=== PATIENT | male | born 1970 | race Caucasian/White ===

== ENCOUNTER 2019-11-15 12:45 | Observation (INO) | payer OTHER ==
[~2019-11-15] VITALS: Ht 172.7 cm; Wt 82.6 kg
[2019-11-15 13:49] LABS: HEMATOCRIT 43.9 % (39.0-50.0); HEMOGLOBIN 14.6 g/dl (14.0-18.0); MEAN CELL VOLUME 91.1 fL CALC (80.0-100.0); MEAN CORPUSCULAR HGB 30.3 pG CALC (26.0-32.0); MEAN CORPUSCULAR HGB CONC 33.3 g/L CALC (32.0-36.0); NEUT# 3.46 thou/uL (1.82-7.42); RED BLOOD COUNT 4.82 mill/uL (4.70-6.10); RED CELL DISTRI WIDTH 12.7 % (11.5-15.5)
[2019-11-15] MEDS ORDERED: SYNTHROID50 MCG PO (14:06)
[2019-11-15 14:25] LABS: ACT PARTIAL THROMBO TIME 26.5 SECONDS (20.0-32.5); PROTHROMBIN TIME 10.4 SECONDS (9.0-12.5)
[2019-11-15 14:54] LABS: BARBITURATES NEGATIVE (NEGATIVE); COCAINE NEGATIVE (NEGATIVE); METHADONE NEGATIVE (NEGATIVE); OXCYCODONE NEGATIVE (NEGATIVE); TETRAHYDROCANNABIONOL NEGATIVE (NEGATIVE); TRICYLIC ANTIDEPRESSANTS NEGATIVE (NEGATIVE); URINE BILIRUBIN - DIPSTICK NEGATIVE (NEGATIVE); URINE BLOOD DIPSTICK NEGATIVE (NEGATIVE); URINE COLOR YELLOW; URINE GLUCOSE - DIPSTICK NEGATIVE (NEGATIVE); URINE KETONE NEGATIVE (NEGATIVE); URINE LEUK ESTERASE NEGATIVE (NEGATIVE); URINE NITRITE - DIPSTICK NEGATIVE (Negative); URINE PROTEIN - DIPSTICK NEGATIVE (NEG-TRACE); URINE SPECIFIC GRAVITY 1.015; URINE UROBILINOGEN - DIPSTICK 0.2 E.U./dL (0.2)
[2019-11-15 15:00] LABS: ALBUMIN 4.5 g/dL (3.2-5.0); ALKALINE PHOSPHATASE 83 u/l (38-126); ANION GAP 17 (6-22 (CALC)); BILIRUBIN, TOTAL 0.6 mg/dL (0.0-1.4); BUN 6 mg/dL (9-20); BUN/CREATININE RATIO 7 (12-20 (CALC)); CARBON DIOXIDE 22 mmol/l (22-30); CHLORIDE 105 mmol/l (95-108); CREATININE 0.9 mg/dL (0.7-1.3); GFR > 60 ML/MIN (>=60 (CALC)); GFR FOR AFR.AMER. > 60 ML/MIN (>=60 (CALC)); LIPASE 33 u/l (23-300); POTASSIUM 4.4 mmol/l (3.5-5.1); SGOT/AST 22 u/l (17-59); SODIUM 139 mmol/l (137-146); TOTAL PROTEIN 8.1 g/dL (6.3-8.2)
[2019-11-15 15:12] LABS: MYOGLOBIN 37 ng/mL (0 - 121)
[2019-11-15 19:28] VITALS: BP 146/81
[2019-11-15 23:45] VITALS: BP 99/62
[2019-11-16 03:40] VITALS: BP 101/63
[2019-11-16 06:49] LABS: CHOLESTEROL HDL RATIO 4.5 (<4.4 (CALC)); MAGNESIUM 2.2 mg/dL (1.6-2.3)
[2019-11-16 07:21] VITALS: BP 117/72
[2019-11-16 10:55] VITALS: BP 137/90
== END 2019-11-16 14:28 | DRG 313 ==
LOC: ED 12:45 → ED-I 15:02 → ED 16:33 → MS2 16:33
PROVIDERS: ADMIT Internal Medicine; ATTEND Internal Medicine
DX: R07.89 Other chest pain (principal); I10 Essential (primary) hypertension; E03.9 Hypothyroidism, unspecified
CPT/HCPCS: G0378

== ENCOUNTER 2020-12-24 21:57 | Emergency (ER) | payer SELFPAY ==
[~2020-12-24] VITALS: Ht 172.7 cm; Wt 77.0 kg
[~2020-12-24 21:57] MED LIST: SYNTHROID50 MCG PO
[2020-12-24 22:48] VITALS: BP 132/71
[2020-12-24] MEDS ORDERED: DOXYCYCL HYC100 MG PO (23:24)
[2020-12-24] MEDS ORDERED: VOLTAREN75 MG PO (23:24)
== END 2020-12-24 23:48 | disposition home or self-care (01) | DRG 605 ==
LOC: ED 21:57
DX: S91.331A Puncture wound without foreign body, right foot, initial encounter (principal); L03.115 Cellulitis of right lower limb; W26.9XXA Contact with unspecified sharp object(s), initial encounter; Y93.89 Activity, other specified; Y92.009 Unspecified place in unspecified non-institutional (private) residence as the place of occurrence of the external cause

== ENCOUNTER 2021-04-25 12:33 | Observation (INO) | payer OTHER ==
[~2021-04-25] VITALS: Ht 172.7 cm; Wt 73.2 kg
[~2021-04-25 12:33] MED LIST changes: +DOXYCYCL HYC100 MG PO; +VOLTAREN75 MG PO
--- NOTE | 2021-04-25 12:33 | NUR ---
TO ROOM VIA EMS, SEIZURE PRECAUTIONS IN PLACE.
[2021-04-25 13:06] LABS: HEMATOCRIT 44.8 % (39.0-50.0); HEMOGLOBIN 15.2 g/dl (14.0-18.0); IMMATURE GRANULOCYTES 0.2 % (0.0-5.0); MEAN CELL VOLUME 89.2 fL CALC (80.0-100.0); MEAN CORPUSCULAR HGB 30.3 pG CALC (26.0-32.0); MEAN CORPUSCULAR HGB CONC 33.9 g/dL CAL (32.0-36.0); NEUT# 4.46 thou/uL (1.82-7.42); RED BLOOD COUNT 5.02 mill/uL (4.70-6.10); RED CELL DISTRI WIDTH 12.3 % (11.5-15.5)
[2021-04-25 13:12] LABS: URINE BILIRUBIN - DIPSTICK NEGATIVE (NEGATIVE); URINE BLOOD DIPSTICK NEGATIVE (NEGATIVE); URINE COLOR YELLOW; URINE GLUCOSE - DIPSTICK NEGATIVE (NEGATIVE); URINE KETONE NEGATIVE (NEGATIVE); URINE LEUK ESTERASE NEGATIVE (NEGATIVE); URINE NITRITE - DIPSTICK NEGATIVE (Negative); URINE PH 7.5 (4.5-8.0); URINE PROTEIN - DIPSTICK NEGATIVE (NEG-TRACE); URINE SPECIFIC GRAVITY 1.015; URINE UROBILINOGEN - DIPSTICK 0.2 E.U./dL (0.2)
[2021-04-25 13:25] LABS: ACT PARTIAL THROMBO TIME 18.7 SECONDS (20.0-32.5); PROTHROMBIN TIME 10.3 SECONDS (9.0-12.5)
[2021-04-25 13:27] LABS: ALBUMIN 4.5 g/dL (3.2-5.0); ALKALINE PHOSPHATASE 87 u/l (38-126); AMYLASE 68 u/l (30-110); ANION GAP 16 (6-22 (CALC)); BILIRUBIN, TOTAL 0.4 mg/dL (0.0-1.4); BUN 7 mg/dL (9-20); BUN/CREATININE RATIO 8 (12-20 (CALC)); CARBON DIOXIDE 26 mmol/l (22-30); CHLORIDE 101 mmol/l (95-108); CPK 45 u/l (52-200); CREATININE 0.9 mg/dL (0.7-1.3); ETHYL ALCOHOL 0 mg/dl (0-30); GFR > 60 ML/MIN (>=60 (CALC)); GFR FOR AFR.AMER. > 60 ML/MIN (>=60 (CALC)); LIPASE 52 u/l (23-300); POTASSIUM 3.9 mmol/l (3.5-5.1); SGOT/AST 22 u/l (17-59); SODIUM 139 mmol/l (137-146); TOTAL PROTEIN 7.8 g/dL (6.3-8.2)
--- NOTE | 2021-04-25 13:30 | NUR ---
PATIENT RESTING, AWAITING RSULTS AND CT SCAN RESULTS. NO DISTRESS. VSS.
--- NOTE | 2021-04-25 15:38 | NUR ---
TELE NEURO IN PROGRESS
--- NOTE | 2021-04-25 16:00 | NUR ---
PATIENT RESTING, SPEECH CLEAR, NO DISTRESS. CONTINUING TO MONITOR.
--- NOTE | 2021-04-25 17:00 | NUR ---
PATIENT RESTING, NO DISTRESS. AWAITING BED ASSIGNMENT. PLAN REVIEWED.
--- NOTE | 2021-04-25 18:40 | NUR ---
DINNER TRAY PROVIDED.
--- NOTE | 2021-04-25 18:50 | NUR ---
REPORT GIVEN TO ICU NURSE TATE.
[2021-04-25 19:00] VITALS: BP 124/96
--- NOTE | 2021-04-25 19:00 | NUR ---
PATIENT LAYS IN RAE'S. IS ALERT AND ORIENTED X4. ANSWERS QUESTIONS APPROPRIATELY AND SPEECH CLEAR. FOLLOWS DIRECTIONS. NIH PERFORMED AND SCORE IS 1 DUE TO PATIENT DRIFTS RIGHT LEG, PATIENT REPORTS HIS MUSCLES ARE SORE FROM HIS SEIZURE AND THEREFORE IS HAVING TROUBLE LIFTING LEGS UP. ADMISSION ASSESSMENT COMPLETED. PATIENT REPORTS HEADACHE, THROBBING, RATES 7\10. LEFT WRIST HANDCUFFED AND LEFT LEG CUFFED TO BED. GUARD AT BEDSIDE. SR ON TELEMETRY, VS WNL. ON RA, NO SOB NOTED. MEDICATION RCONCILIATION COMPLETED. REPORTS HE HAS NOT TAKEN HIS SEIZURE MEDICATION SINCE ABOUT 1 YEAR AGO. REPORTS HE WAS GIVEN 2 BLOOD PRESSURE MEDICATIONS LAST NIGHT AT THE [facility] BECAUSE HIS BLOOD PRESSURE WAS HIGH. NKA. CALL LIGHT WITHIN REACH.
[2021-04-25] MEDS ORDERED: LEVOTHYROXIN50 MC1 PO (19:21)
[2021-04-25] MEDS ORDERED: CLONIDINE0.1 MG PO (19:22)
[2021-04-25 20:00] VITALS: BP 127/81
[2021-04-25 21:00] VITALS: BP 144/82
--- NOTE | 2021-04-25 21:14 | NUR ---
TYLENOL GIVEN BY FRANCISCO ISAAC FOR C/O HEADACHE, RATES 7 OUT OF 10. NO OTHER NEEDS OR COMPLAINTS, VS WNL. GUARD AT BEDSIDE.
[2021-04-25 22:00] VITALS: BP 145/80
[2021-04-25 23:00] VITALS: BP 96/63
[2021-04-26] VITALS (15 sets, daily range): BP systolic 85–164; BP diastolic 52–91
--- NOTE | 2021-04-26 01:00 | NUR ---
PATIENT AWAKENS EASILY WHEN SPOKEN TO. NO ACUTE DISTRESS SHOWN. FOLLOWS ALL DIRECTIONS. NO COMPLAINTS OF PAIN. ALL VS WNL. SR ON TELEMETRY. GUARD AT BEDASIDE. NO NEEDS AT THIS TIME.
[2021-04-26 04:19] LABS: HEMATOCRIT 48.9 % (39.0-50.0); HEMOGLOBIN 15.9 g/dl (14.0-18.0); IMMATURE GRANULOCYTES 0.1 % (0.0-5.0); MEAN CORPUSCULAR HGB 30.2 pG CALC (26.0-32.0); MEAN CORPUSCULAR HGB CONC 32.5 g/dL CAL (32.0-36.0); NEUT# 3.6 thou/uL (1.82-7.42); RED BLOOD COUNT 5.26 mill/uL (4.70-6.10); RED CELL DISTRI WIDTH 12.6 % (11.5-15.5)
[2021-04-26 04:39] LABS: ALBUMIN 4.1 g/dL (3.2-5.0); ALKALINE PHOSPHATASE 71 u/l (38-126); ANION GAP 15 (6-22 (CALC)); BILIRUBIN, TOTAL 0.3 mg/dL (0.0-1.4); BUN 13 mg/dL (9-20); BUN/CREATININE RATIO 17 (12-20 (CALC)); CARBON DIOXIDE 22 mmol/l (22-30); CHLORIDE 103 mmol/l (95-108); CREATININE 0.8 mg/dL (0.7-1.3); GFR > 60 ML/MIN (>=60 (CALC)); GFR FOR AFR.AMER. > 60 ML/MIN (>=60 (CALC)); POTASSIUM 3.9 mmol/l (3.5-5.1); SGOT/AST 16 u/l (17-59); SODIUM 136 mmol/l (137-146); TOTAL PROTEIN 7.1 g/dL (6.3-8.2)
--- NOTE | 2021-04-26 07:09 | NUR ---
RECIEVED PATIENT FROM NIGHT NURSE.
--- NOTE | 2021-04-26 07:29 | NUR ---
PATIENT ASSESSED. A/O X3. ABLE TO ANSWER QUESTIONS AND FOLLOW COMMANDS CORRECTLY. NIH SCORE 0. PERRAL. 3MM BILAT EYES. VITALS ARE STABLE. SR ON MONITOR . NORMAL HEART SOUNDS. CLEAR LUNGS THROUGHOUT. ACTIVE BOWEL SOUNDS. NO PRESENT EDEMA. STRONG PULSES. STATED HE HAS NO A PAIN AT THIS TIME BUT "FEELS SORE FROM YESTERDAY". PRODUCT REPRESENTATIVE AT BEDSIDE. SAFETY MEASURES IN PLACE. CALL LIGHT IN REACH. WILL CONTINUE TO MONITOR IN THE ER.
--- NOTE | 2021-04-26 08:00 | NUR ---
PATIENT SITTING UP IN BED EATING BREAKFAST.
--- NOTE | 2021-04-26 09:20 | NUR ---
PATIENT WAS TAKEN DOWN TO MRI.
[2021-04-26] MEDS ORDERED: LISINOPRIL10 MG PO (09:55)
--- NOTE | 2021-04-26 10:23 | NUR ---
PATIENT RETURNED TO ER AFTER MRI.
--- NOTE | 2021-04-26 10:24 | NUR ---
6484- call received from MRI staff in regards to pt activitly having a seizure; this literary writer and SUMAN Goldstein immediately to MRI 1000- Dr Puente called per literary writer in regards to report received from MRI; order received for Ativan 1002- arrived to MRI; pt noted with confused appearance; pt noted with decerbrate posturing of the hands; slight shaking/tremors continue slightly to lower extremities; pharmacy notified for ativan 1006- pt alert but drowsy; able to answer some questions approp; no urinary continence noted; posturing continues; 1008- pt medicated with Ativan IV as per orders; 1013- pt with slow slurred speech; pt now pulling at tongue and licking fingers; no tongue swelling noted; rapid response called; o2 per nc continues 1024- pt returned back to unit/er hold; pt awake and alert; admits to having a metal taste in his mouth and feeling hot all over; pt able to states name and date of , states he is at this the doctor, state he is in [place]; aware of current month and year; reoriented; group home staff at bedside; sr on monitor; iv intact; will continue to monitor
--- NOTE | 2021-04-26 12:00 | NUR ---
PATIENT IS RESTING IN BED.
--- NOTE | 2021-04-26 14:27 | NUR ---
PATIENT WAITING TO GO UPSTAIRS TO [facility]. RAN TACHY ON THE MONITOR. REQUSTED TO USE THE BATHROOM TO MAKE A BOWEL MOVEMENT. PATIENT HAD A STEADY GAIT WALKING TO THE BATHROOM. REPORTS NO DIZZINESS OR SOB WHILE WALKING. ROSEANNA IS OUTSIDE BATHROOM DOOR.
--- NOTE | 2021-04-26 15:12 | NUR ---
PATIENT HAD A SEIZURE, POSTURING WITH HANDS, LEGS STIFFENED AT TIMES. LASTED ABOUT 12 MINTUES TOTAL. ATIVAN 1MG GIVEN, PATIENT RELAXED, RESPONDS TO HIS NAME WHEN CALLED. SLOWLY TRYING TO WAKE UP. WILL CONTINUE TO MONITOR
--- NOTE | 2021-04-26 15:26 | NUR ---
REPORT REC FROM Tahmina SILVA RN
--- NOTE | 2021-04-26 15:31 | NUR ---
REPORT GIVEN OFF TO DENISE WILL ON [facility]. PATIENT WILL BE TRANSFERRED TO [facility] ROOM 281.
--- NOTE | 2021-04-26 15:39 | NUR ---
TELEMETRY ORDER OBTAINED BY DR GOLDEN FOR TELEMETRY. ORDER WRITTEN AND FAXED TO ED
--- NOTE | 2021-04-26 15:41 | NUR ---
PT ARRIVED VIA WC ACCOMPANIED BY Tahmina SILVA RN X1 GUARD AT BEDSIDE. SHACKLES TO LT WRIST AND LT ANKLE IN PLACE. CIRCULATION ADEQUATE AND BRISK. PT DENIES ANY DISCOMFORT. BED RAILES PADDED FOR SEIZURE PRECAUTIONS. #18 EMS SITE TO [facility]AC HEALTHY PATENT, PT REQUESTING SITE TO BE MOVED FOR "COMFORT". ORIENTED PT TO ROOM. CALL LIGHT WITHIN REACH.
--- NOTE | 2021-04-26 20:02 | NUR ---
PATIENT SEMI FOWLERS SHACKLED TO BED WITH LEFT WRIST AND ANKLE AND GUARD AT BEDSIDE. ALERT AND ORIENTED X3. C/O HEADACH 07/10. TYLENOL GIVEN. PATIENT REQUESTED TO HAVE FAMILY CONTACTED. EDUCATED PATIENT ON PROTOCOLS IN PLACE FOR PRISONERS. NO CONTACT TO BE MADE. PATIENT ALSO C/O LEFT 2ND AND 3RD TOES NUMBNESS THAT HAS BEEN THERE SINCE HIS SEIZURE DOWNSTAIRS. BED IN LOW POSITION. CALL LIGHT WITHIN REACH.
--- NOTE | 2021-04-26 22:01 | NUR ---
AT 2044 THIS NURSE RETURNED TO PT ROOM TO REASSESS EFFECTIVENESS OF TYLENOL. PATIENT APPEARED TO BE IN A POST ICTAL STATE. LETHARTIC AND BARELY RESPONSIVE. ASKED GUARD IF SHE OBSERVED ANY SEIZURE BEHAVIOR. SHE REPORTED NOT. 2 MINUTES LATER WAS OBSERVED BY THE GUARD PULLING HIS TELEMETRY OFF AND THROWING ON THE FLOOR AND THEN RETURNED TO "POST ICTAL STATE". PATIENT STILL C/O HEADACHE WITHOUT RELIEF FROM TYLENOL. COOL COMPRESS OFFERED AND REFUSED. PATIENT THEN MADE THE STATEMENT, "I'M OUTA HERE" ASKING TO SIGN OUT AMA. AMA PAPER PRESENTED AND THEN REFUSED TO SIGN AND CONTINUED TO DENY TREATMENT. DUCT INSTALLER AT BEDSIDE WITH THIS NURSE BOTH SIGNED THE AMA FORM, THEN THE PATIENT AGREED TO TREATMENT. CURRENTLY RESTING IN BED SHACKLED PER PRISONER PROTOCOL. GUARD AT BEDSIDE. CALL LIGHT WITHIN REACH.
[2021-04-27 00:32] VITALS: BP 118/78
--- NOTE | 2021-04-27 00:55 | NUR ---
ENTERED PATIENT'S ROOM TO INQUIRE ABOUT PAIN AND DO THE NEURO CHECK. PATIENT REFUSED TO ANSWER AND QUESTIONS OR COOPERATE. NO OBVIOUS SIGNS OF DISTRESS OR DISCOMFOT NOTED. NOT IN A POST ICTAL STATE.
[2021-04-27 04:00] VITALS: BP 115/70
--- NOTE | 2021-04-27 04:01 | NUR ---
PATIENT ALLOWED THIS NURSE TO DO ASSESSMENT. STILL HAS MILD HEADACHE 01/07. TYLENOL OFFERED AND REFUSED. BLANKET GIVEN PER PATIENT REQUEST. GUARD STILL AT BEDSIDE.
[2021-04-27 06:04] LABS: HEMOGLOBIN 14.3 g/dl (14.0-18.0); IMMATURE GRANULOCYTES 0.2 % (0.0-5.0); MEAN CELL VOLUME 90.8 fL CALC (80.0-100.0); MEAN CORPUSCULAR HGB 30.6 pG CALC (26.0-32.0); MEAN CORPUSCULAR HGB CONC 33.6 g/dL CAL (32.0-36.0); NEUT# 3.26 thou/uL (1.82-7.42); RED BLOOD COUNT 4.68 mill/uL (4.70-6.10); RED CELL DISTRI WIDTH 12.4 % (11.5-15.5)
[2021-04-27 06:07] LABS: HEMATOCRIT 42.5 % (39.0-50.0)
--- NOTE | 2021-04-27 06:21 | NUR ---
PATIENT COOPERATIVE THIS A.M. MEDICATION COMPLIANT. C/O HEADACHE PAIN 04/09, TYLENOL GIVEN.
[2021-04-27 06:35] LABS: ALBUMIN 3.5 g/dL (3.2-5.0); ALKALINE PHOSPHATASE 61 u/l (38-126); ANION GAP 13 (6-22 (CALC)); BUN 14 mg/dL (9-20); BUN/CREATININE RATIO 19 (12-20 (CALC)); CARBON DIOXIDE 22 mmol/l (22-30); CHLORIDE 106 mmol/l (95-108); CREATININE 0.8 mg/dL (0.7-1.3); GFR > 60 ML/MIN (>=60 (CALC)); GFR FOR AFR.AMER. > 60 ML/MIN (>=60 (CALC)); MAGNESIUM 1.9 mg/dL (1.6-2.3); POTASSIUM 4.1 mmol/l (3.5-5.1); SGOT/AST 14 u/l (17-59); SODIUM 137 mmol/l (137-146); TOTAL PROTEIN 6.2 g/dL (6.3-8.2)
[2021-04-27 07:05] VITALS: BP 130/81
--- NOTE | 2021-04-27 07:05 | NUR ---
PATIENT LAYING IN BED ALERT AND ORIENTED AT THIS TIME X 3. PATINET DENIES ANY PAIN AND STATED "IM READY TO GO TODAY". NEURO CHECKS DONE AND ARE UNCHANGED AND WITHOUT ANY NOTICABLE DEFICTS AT THIS TIME. SIDERAILS ARE UP AND PADDED X 2 CALL LIGHT IS WITHIN REACH. LEFT WRSIT SHACKLED TO SIDERAIL AND NO BLOOD FLOW IMPAIRMENT. OFFICER AT BEDSIDER. LUNG ALANIS ARE CLEAR. RN ASSESSEMNT DONE SEE INTERVENTIONS.
--- NOTE | 2021-04-27 11:38 | NUR ---
PATIENT SITTING UP IN BED AT THIS TIME. PATIENT DENIES ANY NEEDS. NEURO CHECKS DONE AND REMAIN UNCHANGED WITHOUT DEFICITS. SIDERAILS ARE UP CALL LIGHT IS WITHIN REACH. PATIENT REMAINS SHACKLED TO BED BY LEFT WRIST AND NO IMPAIRMENT OF BLOOD FLOW TO EXTREMITY. SIDERAILS ARE UP X 2 AND REMAIN PADDED. WILL CONTINUE TO MONITOR.
[2021-04-27 12:00] VITALS: BP 158/88
[2021-04-27] MEDS ORDERED: LEVOTHYROXIN50 MC1 PO (12:50)
[2021-04-27] MEDS ORDERED: VALPROIC ACD250 M1 PO (12:50)
--- NOTE | 2021-04-27 13:38 | NUR ---
PATIENT D/C AT THIS TIME. TELE REMOVED PATIENT UNDERSTANDS D/C INSTRUCTIONS. IV REMOVED AND NO SIGNS OR SYMPTOMS OF IV SITE INFECTIONS.
--- NOTE | 2021-04-27 13:44 | NUR ---
Discharge instructions given. Patient verbalizes understanding of same. Discharged in stable condition via [facility] with [facility]. All belongings sent with pt. PATIENT WANTED TO WALK OUT HIMSELF WITH OFFICER.
== END 2021-04-27 12:45 | DRG 101 ==
LOC: ED 12:33 → ED-I 15:33 → MS2 04-26 15:42
PROVIDERS: Nurse Practitioner; ADMIT Internal Medicine; ATTEND Internal Medicine
DX: G40.409 Other generalized epilepsy and epileptic syndromes, not intractable, without status epilepticus (principal); I10 Essential (primary) hypertension; E03.9 Hypothyroidism, unspecified; T42.6X6A Underdosing of other antiepileptic and sedative-hypnotic drugs, initial encounter; T42.4X6A Underdosing of benzodiazepines, initial encounter; T38.1X6A Underdosing of thyroid hormones and substitutes, initial encounter; Z91.120 Patient's intentional underdosing of medication regimen due to financial hardship; Z87.891 Personal history of nicotine dependence; Z20.822 Contact with and (suspected) exposure to COVID-19
CPT/HCPCS: G0378; J1953; J2060; Q9967